=== PATIENT | female | born 1980 | race Caucasian/White ===

== ENCOUNTER 2023-02-26 10:36 | Emergency (ER) | payer OTHER, SELFPAY ==
[2023-02-26] VITALS (18 sets, daily range): BP systolic 148–163; BP diastolic 85–135; PULSE 46–61; RESP 18; TEMP 36.7; O2SAT 94–99; BMI 36.0
--- NOTE | 2023-02-26 11:24 | ED.GENADULT ---
HPI - General Adult General Date Seen: 02/26/23 Chief complaint: Shortness of Breath/Dyspnea Stated complaint: Shortness of breath, low pulse Time Seen by Provider: 02/26/23 10:49 Source: patient Mode of arrival: ambulatory Limitations: no limitations History of Present Illness HPI narrative: Patient is a 42-year-old female with no pertinent medical problems presenting for chest pressure and shortness of breath. She says symptoms started this morning. She admits she has been on the high mild distress over the past week due to her child being on the autistic spectrum and causing issues at school. She does state she is also having right-sided numbness that has since resolved. She states the chest pressure shortness of breath or also improving. The states she has been more active recently since they moved to the area. Denies being on control, history of cancer, history of blood clots, recent surgeries or or traumas, unilateral leg swelling. No history of hypertension or hyperlipidemia, only medications he is taking his sertraline. She states her symptoms all seem to be improving at this time and does states she does have anxiety. Related Data Home Medications Medication Instructions Recorded Confirmed sertraline 50 mg tablet 50 mg PO QAM 02/26/23 02/26/23 Allergies Allergy/AdvReac Type Severity Reaction Status Date / Time No Known Drug Allergies Allergy Verified 02/26/23 10:45 Review of Systems Status of ROS: Reports: 10 or more systems reviewed and unremarkable except as noted in History and below PFSH PFS Social History Non-prescribed substance use: denies use Exam Narrative: Exam Narrative: Const: Well-nourished, Well-developed, in mild distress Eyes: PERRL, no conjunctival injection, and symmetrical lids HENT: Atraumatic external nose and ears. Moist mucous membranes. Neck: Symmetric, trachea midline, No thyromegaly. CVS: RRR, No murmurs or gallops. Peripheral pulses 2+ and equal in all extremities RESP: Unlabored respiratory effort. Clear to auscultation bilaterally. GI: Nontender/Nondistended, No rebound or guarding. MSK:Extremities w/o deformity, Normal Active ROM Skin: Warm, Dry. No rashes or lesions. Neuro: Normal Muscle tone, No focal neurological deficits. Psych: Awake, Alert, & Oriented x3. Appropriate mood and affect. Const: Vital Signs, click to edit/add: Vital Signs - 24 hr 02/26/23 10:38 02/26/23 11:36 02/26/23 11:37 Temperature 98.0 F Pulse Rate 50 L Pulse Rate [Pulse Oximeter] 60 Respiratory Rate 18 18 Blood Pressure 148/85 H Blood Pressure [Ri ght Upper Arm] 153/100 H Pulse Oximetry 98 97 97 Oxygen Delivery Me thod Room Air Room Air 02/26/23 11:45 02/26/23 12:00 02/26/23 12:02 Temperature Pulse Rate 50 L 46 L 55 L Pulse Rate [Pulse Oximeter] Respiratory Rate Blood Pressure 158/96 H Blood Pressure [Ri ght Upper Arm] Pulse Oximetry 99 99 96 Oxygen Delivery Me thod 02/26/23 12:15 02/26/23 12:30 02/26/23 12:31 Temperature Pulse Rate 51 L 57 L 55 L Pulse Rate [Pulse Oximeter] Respiratory Rate Blood Pressure 163/94 H Blood Pressure [Ri ght Upper Arm] Pulse Oximetry 97 97 98 Oxygen Delivery Me thod 02/26/23 12:45 02/26/23 13:00 02/26/23 13:02 Temperature Pulse Rate 51 L 59 L 52 L Pulse Rate [Pulse Oximeter] Respiratory Rate Blood Pressure 162/135 H Blood Pressure [Ri ght Upper Arm] Pulse Oximetry 96 98 97 Oxygen Delivery Me thod Course Vital Signs Vital signs: Initial Vital Signs Temperature 98.0 F 02/26/23 10:38 Temperature Source Temporal Artery Scan 02/26/23 10:38 Pulse Rate 60 02/26/23 10:38 Respiratory Rate 18 02/26/23 10:38 Blood Pressure 153/100 H 02/26/23 10:38 Blood Pressure Mean 117 H 02/26/23 10:38 Blood Pressure Position Sitting 02/26/23 10:38 Pulse Oximetry 98 02/26/23 10:38 Oxygen Delivery Method Room Air 02/26/23 10:38 Vital Signs Temperature 98.0 F 02/26/23 10:38 Pulse Rate 60 02/26/23 10:38 Respiratory Rate 18 02/26/23 10:38 Blood Pressure 153/100 H 02/26/23 10:38 Pulse Oximetry 98 02/26/23 10:38 Oxygen Delivery Method Room Air 02/26/23 10:38 Temperature 98.0 F 02/26/23 10:38 Pulse Rate 52 L 02/26/23 13:02 Respiratory Rate 18 02/26/23 11:36 Blood Pressure 162/135 H 02/26/23 13:02 Pulse Oximetry 97 02/26/23 13:02 Oxygen Delivery Method Room Air 02/26/23 11:36 Medical Decision Making MDM Narrative Medical decision making narrative: Patient is a 42-year-old female presents tumors work for chest pain and shortness of breath. Symptoms started this morning. They are already improving and she also states the numbness in the right side of her body has almost fully resolved now. She is perk negative and a PE is unlikely. Lungs sound clear and the COPD or asthma exacerbation seem unlikely and she has no history of smoking. She is low risk for ACS at this time we will check a troponin EKG. Cbc, BMP, magnesium were ordered to check for electrolyte abnormalities or other signs of infection. Chest x-ray also ordered along with a COVID and flu. Patient's lab work showed no concerning abnormalities. Her troponin within normal limits. BMP does show a potassium of 3.1 and this was replenished with oral potassium. COVID and flu were negative. EKG shows no concerning abnormalities. She is bradycardic but is not having any lightheadedness or dizziness at this time and this appears to be something she can follow up outpatient for. Chest x-ray shows no acute abnormalities. Her heart score is 0. Unlikely to be ACS at this time. She is otherwise doing well and can be discharged home. She is agreeable with this plan Lab Data Labs: Lab Results 02/26/23 Range/Units 11:36 WBC 11.33 H (4.50-11.00) K/uL RBC 4.44 (4.00-5.20) m/uL Hgb 12.5 (12.0-16.0) gm/dL Hct 37.0 (33.0-51.0) % MCV 83 (80-100) fL MCH 28 (26-34) pg MCHC 34 (32-36) gm/dL RDW Coeff of Yoseph 11.8 (11.5-15.5) % Plt Count 355 (140-440) K/uL Neut % (Auto) 67.1 (42.0-72.0) % Lymph % (Auto) 25.0 (20-44) % [place] % (Auto) 5.4 (0.0-11.0) % Eos % (Auto) 2.0 (0.0-7.0) % Baso % (Auto) 0.4 (0.0-3.0) % Neut # (Auto) 7.60 H (1.7-7.0) K/uL Lymph # (Auto) 2.80 (0.90-2.90) K/uL [place] # (Auto) 0.60 (0.00-0.90) K/UL Eos # (Auto) 0.20 (0.00-0.50) K/uL Baso # (Auto) 0.00 (0.00-0.30) K/uL Abs Immat Gran (auto) 0.00 (0.00-0.30) K/uL Imm/Tot Granulo (auto) 0.1 % Sodium 139 (135-149) mmol/L Potassium 3.1 L (3.6-5.1) mmol/L Chloride 103 (96-114) mmol/L Carbon Dioxide 27 (20-32) mmol/L Anion Gap 9 (7-15) mEq/L BUN 9 (5-24) mg/dL Creatinine 0.6 (0.5-1.5) mg/dL Estimated Creat Clear 107.63 Estimated GFR 116 ml/min Glucose 120 H (60-115) mg/dL Calcium 9.2 (8.4-10.6) mg/dL Magnesium 1.6 (1.5-2.6) mg/dL Troponin I < 0.01 L (0.01-0.04) ng/mL HCG, Qual Negative (Negative) SARS-CoV-2 (PCR) Negative SARS-CoV-2 (Negative) Influenza Type A (PCR) Negative PCR FLU A (Negative) Influenza Type B (PCR) Negative PCR FLU B (Negative) ECG Data Attestation: I personally reviewed and interpreted this ECG as follows: Prior ECG tracings: not available for review Interpretation: Sinus bradycardia 0 346 beats per minute, normal intervals, normal axis, no ST or T-wave abnormalities Discharge Plan Discharge Clinical Impression: Atypical chest pain Patient Disposition: Home, Self-Care Condition: Stable Instructions: Noncardiac Chest Pain (ED) Additional Instructions: Your lab work shows no concerning abnormalities. There is not appear to be your heart or lungs I caused the symptoms. You do have a slow heart rate which you can follow-up with your primary care provider about. Return for new worsening symptoms Prescriptions: No Action sertraline 50 mg tablet 50 mg PO QAM Follow Up/Referrals: Provider,Not a Local [Primary Care Provider] - Stand Alone Forms: [facility] Info Instructions
--- NOTE | 2023-02-26 11:29 | CRLHL7_ITS ---
For Patients: As a result of the Century Cures Act, medical imaging exams and procedure reports are released immediately into your electronic medical record. You may view this report before your referring provider. If you have questions, please contact your health care provider. INDICATION: Chest pressure. Shortness of breath.. TECHNIQUE: Chest 2 views. COMPARISON: None. FINDINGS: Cardiovascular and mediastinum: Heart size and vasculature are normal in caliber and appearance. Lungs and pleural spaces: Lungs are clear. No sign of infiltrate or mass. No sign of pleural effusion. No pneumothorax. Bones and soft tissues: No significant findings. IMPRESSION: No acute or significant findings. Dictated by Joe Vernon MD @ 02/26/2023 1:42:02 PM (Electronically Signed)
[2023-02-26 11:52] LABS: Basophils Percent Auto 0.4 % (0.0-3.0); Hemoglobin* 12.5 gm/dL (12.0-16.0); Immature Granulocytes Pct Auto 0.1 %; Mean Corpuscular HGB Conc 34 gm/dL (32-36); Mean Corpuscular Hemoglobin 28 pg (26-34); Mean Corpuscular Volume 83 fL (80-100); Monocytes Percent Auto 5.4 % (0.0-11.0); Neutrophils Percent Auto 67.1 % (42.0-72.0); Platelet Count* 355 K/uL (140-440); RDW Coefficient of Variation % 11.8 % (11.5-15.5); Red Blood Count 4.44 m/uL (4.00-5.20); White Blood Count* 11.33 K/uL (4.50-11.00)
[2023-02-26 12:04] LABS: Chloride* 103 mmol/L (96-114); Potassium* 3.1 mmol/L (3.6-5.1); Sodium* 139 mmol/L (135-149)
[2023-02-26 12:07] LABS: Anion Gap 9 mEq/L (7-15); Carbon Dioxide* 27 mmol/L (20-32); Creatinine* 0.6 mg/dL (0.5-1.5); Est. Creatinine Clearance* 107.63; Estimated Glomerular Filt Rate 116 ml/min
[2023-02-26 12:08] LABS: Blood Urea Nitrogen* 9 mg/dL (5-24); Calcium* 9.2 mg/dL (8.4-10.6); Glucose* 120 mg/dL (60-115); Magnesium* 1.6 mg/dL (1.5-2.6)
[2023-02-26 12:18] LABS: Slide Review Reflex No
[2023-02-26 12:20] LABS: HCG Qualitative Serum* Negative (Negative); Troponin I* < 0.01 ng/mL (0.01-0.04)
[2023-02-26 12:21] LABS: PCR FLU A Negative PCR FLU A (Negative); PCR FLU B Negative PCR FLU B (Negative); SARS PCR* Negative SARS-CoV-2 (Negative)
== END 2023-02-26 14:04 | disposition home or self-care (01) ==
PROVIDERS: Emergency Provider Student in an Organized Health Care Education/Training Program
DX: R07.89 Other chest pain (principal)
CPT/HCPCS: 36415; 71046; 80048; 83735; 84484; 84703; 85025; 87631; 93005; 99283; 99284; 99285

== ENCOUNTER 2023-12-25 07:55 | Emergency (ER) | payer MEDICAID, SELFPAY ==
[2023-12-25 08:04] VITALS: BP 146/87; PULSE 91; RESP 18; TEMP 36.2; O2SAT 95; BMI 48.3
--- NOTE | 2023-12-25 08:10 | ED_ITS ---
HPI - General Adult General Date Seen: 12/25/23 Chief complaint: Skin/Abscess/Foreign Body Stated complaint: facial swelling Time Seen by Provider: 12/25/23 08:10 History of Present Illness HPI narrative: 43-year-old female presents to the ER today for evaluation of a rash. [place] [facility]. The day after that she noted a rash on her legs and ankles and lower extremities. She was seen in the urgent care a couple of days ago and diagnosed with swimmer's itch. She has been treating it supportively with antihistamine such as Benadryl and Candace. Yesterday the rash is also spreading upward on her arms and shoulders and upper back.. Today the rash is now spreading to her face. She is not noticing any other symptoms. No trouble breathing. No swelling in her mouth or throat. No GI symptoms. No fever. She has no definite known new exposures such as new medications, new foods or new soap. She does have history of eczema affecting her ankles and deals with that chronically. No history of similar allergic reactions. No history of autoimmune disease. Related Data Home Medications ?Medication ?Instructions ?Recorded ?Confirmed sertraline 50 mg tablet 50 mg PO QAM 02/26/23 12/25/23 Previous Rx's ?Medication ?Instructions ?Recorded prednisone 20 mg tablet 60 mg (3 x 20 mg) PO DAILY 5 days 12/25/23 #15 tabs Allergies Allergy/AdvReac Type Severity Reaction Status Date / Time No Known Drug Allergies Allergy Verified 02/26/23 10:45 [facility] Social History Non-prescribed substance use: denies use Exam 2 Narrative: Exam Narrative: Constitutional: Appears well-developed and well-nourished. Active. Non-toxic appearing. Very polite. HENT: Head: Atraumatic. No signs of injury. Nose: No nasal discharge. Mouth/Throat: Mucous membranes are moist. Pharynx is normal. Tonsils symmetric. Uvula midline. Airway patent. Eyes: Conjunctivae normal and EOM are normal. Pupils are equal, round, and reactive to light. Right eye exhibits no discharge. Left eye exhibits no discharge. No icterus. Neck: Normal range of motion. Neck supple. No adenopathy. No stridor. Cardiovascular: Normal rate and regular rhythm. No murmur heard. No murmurs, rubs, or gallops. Brisk capillary refill Pulmonary/Chest: Effort normal. No stridor. No respiratory distress. No wheezes.No rhonchi. No rales. No retractions. Abdominal: Soft. Bowel sounds are normal. No distension. No mass. There is no tenderness. There is no rebound and no guarding. Musculoskeletal: Normal range of motion. No edema. No tenderness. No deformity. Neurological: Alert. Normal strength. No cranial nerve deficit or sensory deficit. Coordination normal. GCS eye subscore is 4. GCS verbal subscore is 5. GCS motor subscore is 6. Skin: She has erythematous swelling of the skin of both of her cheeks below her eyes but not exactly a malar rash. She has a scattered erythematous rash consisting of small 1-2 mm erythematous macules and papules. These are scattered on her upper back, posterior arms and shoulders with a few lesions on both of her forearms. She also has more numerous lesions on both of her lower extremities in particular on both of her calves and shins with scattered lesions on her thighs.. A few of the red lesions also have a central pustule on her lower legs. No other vesicles. No widespread confluent hives. No desquamation. No lesions on her palms or soles. Skin is warm. She also has a scaly confluent rash affecting her medial and posterior ankles which has been present for a long time and she indicates is eczema. Const: Vital Signs, click to edit/add: Vital Signs - 24 hr 12/25/23 08:04 Temperature 97.2 F L Pulse Rate [Right Pulse Oximeter] 91 Respiratory Rate 18 Blood Pressure [Ri ght Upper Arm] 146/87 H Pulse Oximetry 95 Oxygen Delivery Me thod Room Air Course Vital Signs Vital signs: Initial Vital Signs Temperature 97.2 F L 12/25/23 08:04 Temperature Source Temporal Artery Scan 12/25/23 08:04 Pulse Rate 91 12/25/23 08:04 Respiratory Rate 18 12/25/23 08:04 Blood Pressure 146/87 H 12/25/23 08:04 Blood Pressure Mean 106 H 12/25/23 08:04 Blood Pressure Position Sitting 12/25/23 08:04 Pulse Oximetry 95 12/25/23 08:04 Oxygen Delivery Method Room Air 12/25/23 08:04 Vital Signs Temperature 97.2 F L 12/25/23 08:04 Pulse Rate 91 12/25/23 08:04 Respiratory Rate 18 12/25/23 08:04 Blood Pressure 146/87 H 12/25/23 08:04 Pulse Oximetry 95 12/25/23 08:04 Oxygen Delivery Method Room Air 12/25/23 08:04 Temperature 97.2 F L 12/25/23 08:04 Pulse Rate 91 12/25/23 08:04 Respiratory Rate 18 12/25/23 08:04 Blood Pressure 146/87 H 12/25/23 08:04 Pulse Oximetry 95 12/25/23 08:04 Oxygen Delivery Method Room Air 12/25/23 08:04 Medical Decision Making MDM Narrative Medical decision making narrative: This patient presents for evaluation of a pruritic red rash. It actually started on her lower legs a few days ago after she had been swimming in a [place]. She was initially diagnosed with swimmer's itch and has been treating supportively. However since then she has also developed the rash on her upper extremities and face. She had had not exposed her upper body into [place]. Given new spread of the rash, it cause the diagnosis of swimmer's itch into question. She was not actually swimming and some urging her upper body or face in the water. Signs and symptoms could be consistent with allergic reaction. No airway involvement, bronchospasm, GI symptoms, hypotension, or other sign of anaphylaxis. Patient was treated here with medications as noted above. Unclear what is triggering allergic reaction. Potentially could be a reaction to her new sunscreen. Will treat with steroids, antihistamines. Potential for worse reaction was discussed. Given time frame lack of serious systemic symptoms, lack of respiratory difficulty and no oral or pharyngeal swelling, would not admit at this time for anaphylaxis. There is no signs of anaphylactic shock. Less likely would be possible autoimmune rash. She does have a rash on her cheeks that is not a classic malar rash. However needs to be observed in fractures not improving with steroids may need follow-up with primary care. Discharge Plan Discharge Clinical Impression: Hives Patient Disposition: Home, Self-Care Condition: Stable Instructions: Urticaria (ED), Acute Rash (ED) Additional Instructions: As we discussed, please come back to the ER right away if you have worsening rash, swelling in your mouth or throat, trouble breathing, or any concerns. Please continue to use antihistamine such as Candace during the day or Benadryl at night to help with the itching. Started on the prednisone 60 mg per day. This should help calm down the rash and reduce the redness and itching. If the rash is not completely resolved after completing the prednisone, please recheck with her doctor (or come back to the ER for recheck). Prescriptions: New prednisone 20 mg tablet 60 mg PO DAILY 5 Days Qty: 15 0RF No Action sertraline 50 mg tablet 50 mg PO QAM Follow Up/Referrals: Provider,Not a Local [Primary Care Provider] - Stand Alone Forms: [employer] Info Instructions
--- OUTSIDE RECORDS SUMMARY | 2023-12-25 08:54 | XMS_ITS | Clinical Summary ---
Author Organization [facility] Address [place], [place] [address] Care Team Providers Care Incident Response Consultant Name Role Phone Pcp, No Primary Care Provider Unavailabl e Allergies No known active allergies Medications Medication Sig Dispensed Refills Start Date End Date Status CPAPIndications:Obs tructive sleep apnea CPAP machine for home use at pressure: 10 CM H20 , Heated humidifier x 1, Humidifier chamber x 1, nasal mask with cushion x 1, Heated tubing x 1, Headgear x 1, Filters: Disposable x 1pk & Reusable x 1pk, Length of Need: 99 months, Frequency of use: Daily 1 Device 11 03/26/2018 Active hydrOXYzine HCL (ATARAX) 25 mg tabletIndications:A nxiety Take 1 Tablet (25 mg) by mouth every 6 hours if needed for Anxiety. 30 Tablet 1 03/16/2023 Active escitalopram oxalate (LEXAPRO) 5 mg tabletIndications:A nxiety Take one tablet (5 mg) by mouth daily. If tolerating well after 7 days, may increase dose to 2 tablets (10 mg) daily. 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 02/23/2021 Overview: 01/2021 NIL/HPV+, HPV 16/18 negative Plan: Pap/HPV due 01/2022 Concussion with no loss of consciousness 019 Depression, recurrent 12/07/2017 Anxiety 12/07/2017 Morbid obesity 01/03/2011 Irregular menstrual cycle 01/03/2011 Contact dermatitis and other eczema, due to unspecified cause 01/03/2011 Immunizations Name Administration Dates Next Due COVID-19 vaccine (Moderna 100mcg/0.5mL) PF, MDV 07/21/2020,06/23/2020 DTP 11/16/1987 Oral Polio Vaccine 11/16/1987 Tdap 02/23/2021,01/03/2011 Family History Medical History Relation Name Comments Alcohol/Drug Father Alcohol/Drug Mother Relation Name Status Comments Father Mother Social History Tobacco Use Types Packs/Day Years Used Date Smoking Tobacco: Passive Smo ke Exposure - Never Smoker Smokeless Tobacco: Never Tobacco Cessation:Counseling Given: Yes Alcohol Use Standard Drinks/Week Comments No 0 (1 standard drink = 0.6 oz pur e alcohol) PHQ-2 Answer Date Recorded PHQ-2 TOTAL SCORE 1 03/16/2023 Social Connections Answer Date Recorded Frequency of Communication with Friends and Fami ly 0 09/18/2023 Financial Resource Strain Answer Date R ecorded Difficulty of Paying Living Expenses 3 09/18/2023 Difficulty of Paying Living Expenses Not on file 09/18/2023 Food Insecurity Answer Date Recorded Worried About Running Out of Food in the Last Ye ar 1 09/18/2023 Transportation Needs Answer Date Record ed Lack of Transportation (Medical) 1 09/18/2023 Housing Stability Answer Date Recorded Unable to Pay for Housing in the Last Year 1 09/18/2023 Sex and Gender Information Value Date Recorded Sex Assigned at Not on file Gender Identity Not on file Sexual Orientation Not on file Obstetrics History Last Filed Vital Signs Vital Sign Reading Time Taken Comments Blood Pressure 137/89 09/18/2023 12:51 PM CDT Pulse 85 09/18/2023 12:51 PM CDT Temperature 36.8 ??C (98.2 ??F) 07/27/2022 1 2:14 PM [employer] Respiratory Rate 14 07/27/2022 12:1 4 PM [employer] Oxygen Saturation 95% 09/18/2023 12: 51 PM CDT Inhaled Oxygen Concentration - - Weight 133.3 kg (293 lb 12.8 oz) 2023 12:51 PM CDT Height 163 cm (5' 4.17) 02/23/2021 1:35 PM CDT Body Mass Index 50.16 02/23/2021 1:35 PM CDT Plan of Treatment Health Maintenance Due Date Last Done Comments HIV for age 15-65 1997 Hepatitis C screening for age 18-79 2000 BMI (ht and wt on same day) for age 18+ 02/23/2022 02/23/2021, 12/23/2018, 11/18/2018, Additional history exists Pap test for age 21-65 02/23/2022 , 02/23/2021, 12/07/2017, Additional history exists COVID-19 vaccine series ( season) 2023 07/21/2020, 06/23/2020 Influenza for age 9-49 01/27/2024 Depression screening for age 12+ 03/16/2024 03/16/2023, 09/27/2022, 07/11/2021, Additional history exists Tetanus booster 02/23/2031 02/23/2021, 01/03/2011 Tdap Completed 02/23/2021, 01/03/2011 Pneumococcal series for age 6-64 Aged Out No longer eligible based on patient's age to complete this topic Procedures Procedure Name Priority Date/Time Associated Diagnosis Comments HPV THIN PREP Routine 02/23/2021 2:11 PM CDT Screening for malignant neoplasm of cervix from Last 3 Months or Most Recently Relevant to Health Maintenance Results * (ABNORMAL) HPV HIGH RISK (02/23/2021 2:11 PM CDT) TYPE 16 Negative Negative 02/28/2021 11:17 AM CDT [facility] TYPE 18 Negative Negative 02/28/2021 11:17 AM CDT [facility] OTHER HIGH RISK TYPES Positive(A) Negative 02/28/2021 11:17 AM CDT [facility] Other (Cervical) Non-Blood / Unknown 02/23/2021 2:11 PM CDT 02/24/2021 10:09 [facility] 02/28/2021 11:17 AM CDT Specimen is positive for the DNA of any one of, or combination of, the following high risk HPV types: 31, 33, 35, 39, 45, 51, 52, 56, 58, 59, 66, 68. HPV types 16 and 18 DNA were undetectable or below the pre-set threshold. ? Methodology: [employer]0 HPV Test [facility] [address] [place] [address], from Last 3 Months or Most Recently Relevant to Health Maintenance Insurance Payer Benefit Plan / Group Subscriber ID Effect tina Dates Phone Address Type [employer] [id number] 09/07/2023-Pres ent [address] [address] [place] [address] [facility] [id number] 12/26/2021-Prese nt [address] [place] [address] Care Teams Incident Response Consultant Relationship Specialty Start Date End Date Pcp, No . PCP - General 02/27/23
== END 2023-12-25 09:22 | disposition home or self-care (01) ==
LOC: ED 08:53
PROVIDERS: Emergency Provider Emergency Medicine; PCP Student in an Organized Health Care Education/Training Program
DX: L50.9 Urticaria, unspecified (principal)
CPT/HCPCS: 99282; 99283; 99284

== ENCOUNTER 2023-12-28 21:12 | Emergency (ER) | payer MEDICAID, SELFPAY ==
[2023-12-28 21:28] VITALS: BP 149/96; PULSE 65; RESP 16; TEMP 36.6; O2SAT 97; BMI 49.8
--- NOTE | 2023-12-28 22:00 | ED_ITS ---
HPI - Eye Problem General Chief complaint: Eye Problems Stated complaint: Irritation around eyes Time Seen by Provider: 12/28/23 21:54 Source: patient Mode of arrival: ambulatory Limitations: no limitations History of Present Illness HPI Narrative: Patient is a 43-year-old female presenting to the emergency department for eye pain. She has bilateral eye discomfort mostly around the outside of the eye but there is some mild discomfort around the eye. Does not have any pain with movement of the eyes. States the over week ago she went to the [place] and afterwards had allergic reaction was prescribed topical medication and Benadryl. She was then started on prednisone 5 days ago and since then the hives all around her body has resolved but she is still having redness around both of her eyes with some mostly cleared discharge but occasionally will be purulent. She will try to rub her eye but the rubbing makes the skin on the outside feel worse. Denies any vision issues. No other concerns noted at this time. No history of similar symptoms in the past. Related Data Home Medications ?Medication ?Instructions ?Recorded ?Confirmed sertraline 50 mg tablet 50 mg PO QAM 02/26/23 12/25/23 Previous Rx's ?Medication ?Instructions ?Recorded prednisone 20 mg tablet 60 mg (3 x 20 mg) PO DAILY 5 days 12/25/23 #15 tabs Allergies Allergy/AdvReac Type Severity Reaction Status Date / Time No Known Drug Allergies Allergy Verified 02/26/23 10:45 Review of Systems Status of ROS: Reports: 10 or more systems reviewed and unremarkable except as noted in History and below PFS PFS Social History Smoking Status: Never smoker Do you use any of these nicotine containing products: None How often do you have a drink containing alcohol: never AUDIT-C Alcohol total score: 0 Non-prescribed substance use: denies use Exam Narrative: Exam Narrative: Const: Well-nourished, Well-developed, in no distress Eyes: PERRL, mild conjunctival injection, dry erythematous around the eyes. HENT: Atraumatic external nose and ears. Moist mucous membranes. MSK:Extremities w/o deformity, Normal Active ROM Skin: Warm, Dry. No rashes or lesions. Neuro: Normal Muscle tone, No focal neurological deficits. Psych: Awake, Alert, & Oriented x3. Appropriate mood and affect. Const: Vital Signs, click to edit/add: Vital Signs - 24 hr 12/28/23 21:28 Temperature 98 F Pulse Rate [Pulse Oximeter] 65 Respiratory Rate 16 Blood Pressure [Ri ght Upper Arm] 149/96 H Pulse Oximetry 97 Oxygen Delivery Me thod Room Air Course Vital Signs Vital signs: Initial Vital Signs Temperature 98 F 12/28/23 21:28 Temperature Source Temporal Artery Scan 12/28/23 21:28 Pulse Rate 65 12/28/23 21:28 Respiratory Rate 16 12/28/23 21:28 Blood Pressure 149/96 H 12/28/23 21:28 Blood Pressure Mean 113 H 12/28/23 21:28 Blood Pressure Position Sitting 12/28/23 21:28 Pulse Oximetry 97 12/28/23 21:28 Oxygen Delivery Method Room Air 12/28/23 21:28 Vital Signs Temperature 98 F 12/28/23 21:28 Pulse Rate 65 12/28/23 21:28 Respiratory Rate 16 12/28/23 21:28 Blood Pressure 149/96 H 12/28/23 21:28 Pulse Oximetry 97 12/28/23 21:28 Oxygen Delivery Method Room Air 12/28/23 21:28 Temperature 98 F 12/28/23 21:28 Pulse Rate 65 12/28/23 21:28 Respiratory Rate 16 12/28/23 21:28 Blood Pressure 149/96 H 12/28/23 21:28 Pulse Oximetry 97 12/28/23 21:28 Oxygen Delivery Method Room Air 12/28/23 21:28 MDM - Eye Problem MDM Narrative Medical decision making narrative: Patient is a 43-year-old female presenting for bilateral eye pain. Does not l ook like she has periorbital cellulitis this time seems more like an allergic reaction. Cannot definitively say she does not have bacterial conjunctivitis considering the occasional purulent Discharge. Will try antibiotic eyedrops. Is not having any blurry vision concerned about any issues within the eye. No signs of orbital cellulitis. She will be discharged at this time. She is agreeable to this plan. Is trying to get follow-up with her primary care provider and an eye care provider at this time Discharge Plan Discharge Clinical Impression: Conjunctivitis Qualifiers: Conjunctivitis type: unspecified Laterality: bilateral Qualified Code(s): H10.9 - Unspecified conjunctivitis Patient Disposition: Home, Self-Care Condition: Stable Instructions: Conjunctivitis (ED) Additional Instructions: The use the eyedrops yesterday every 6 hours for the next 7 days. Will put the drops in each eye. Return to emergency department for new or worsening symptoms. She try to follow-up with your primary care provider or an eye care provider. Prescriptions: No Action sertraline 50 mg tablet 50 mg PO QAM prednisone 20 mg tablet 60 mg PO DAILY 5 Days Qty: 15 0RF Follow Up/Referrals: Elzbieta Malone PA-C [Primary Care Provider] - Stand Alone Forms: [employer] Info Instructions
--- OUTSIDE RECORDS SUMMARY | 2023-12-28 22:05 | XMS_ITS | Clinical Summary ---
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 Oxygen Saturation 95% 09/18/2023 12: 51 PM [...] 16 Negative Negative 02/28/2021 11:17 AM CDT [facility] TYPE 18 Negative Negative 02/28/2021 11:17 AM CDT [facility] OTHER HIGH RISK TYPES Positive(A) Negative 02/28/2021 11:17 AM CDT [facility] Other (Cervical) Non-Blood / Unknown 02/23/2021 2:11 PM CDT 02/24/2021 10:09 AM [facility] 02/28/2021 11:17 AM CDT Specimen is positive for the DNA of any one of, or combination of, the following high risk HPV types: 31, 33, 35, 39, 45, 51, 52, 56, 58, 59, 66, 68. HPV types 16 and 18 DNA were undetectable or below the pre-set threshold. ? Methodology: [employer]formerly [employer]0 HPV Test [facility] [address] [place] [address], from Last 3 Months or Most Recently Relevant to Health Maintenance Insurance Payer Benefit Plan / Group Subscriber ID Effect tina Dates Phone Address Type [employer] [id number] 09/07/2023-Pres ent [address] [address] [place] [address] [facility] [id number] 12/26/2021-Prese nt [address] [place] [address] Care Teams Carpenter Helper Relationship Specialty Start Date End Date Pcp, No . PCP - General 02/27/23
== END 2023-12-28 22:35 | disposition home or self-care (01) ==
PROVIDERS: Emergency Provider Student in an Organized Health Care Education/Training Program; PCP Student in an Organized Health Care Education/Training Program
DX: H10.9 Unspecified conjunctivitis (principal)
CPT/HCPCS: 99282; 99283; A9270